=== PATIENT | female | born 1990 | race Caucasian/White ===

== ENCOUNTER 2018-02-13 20:32 | Emergency (ER) | payer OTHER ==
[~2018-02-13] VITALS: Ht 167.6 cm; Wt 72.0 kg
[2018-02-13] MEDS ORDERED: NO HOME MEDS (20:46)
[2018-02-13 22:52] VITALS: BP 112/72
[2018-02-13] MEDS: emtricitabine/tenofovir 200mg/300mg tablet PO SCH (23:20)
[2018-02-13] MEDS ORDERED: EMTR1TAB12 PO (23:41)
[2018-02-13] MEDS ORDERED: RALT400T PO (23:41)
== END 2018-02-13 23:55 | disposition home or self-care (01) ==
LOC: ER 20:33
DX: S61.032A Puncture wound without foreign body of left thumb without damage to nail, initial encounter (principal); Z88.8 Allergy status to other drugs, medicaments and biological substances; Z79.899 Other long term (current) drug therapy; W46.0XXA Contact with hypodermic needle, initial encounter; Y93.89 Activity, other specified; Y92.89 Other specified places as the place of occurrence of the external cause; Y99.8 Other external cause status
CPT/HCPCS: 99283

== ENCOUNTER 2019-12-02 14:32 | Emergency (ER) | payer OTHER ==
[~2019-12-02] VITALS: Ht 170.2 cm; Wt 69.5 kg
[~2019-12-02 14:32] MED LIST: EMTR1TAB12 PO; NO HOME MEDS; RALT400T PO
[2019-12-02 14:46] VITALS: BP 130/76
[2019-12-02] MEDS ORDERED: HYDR-4383 PO (15:49)
== END 2019-12-02 16:19 | disposition home or self-care (01) ==
LOC: ER 14:32
DX: S82.852A Displaced trimalleolar fracture of left lower leg, initial encounter for closed fracture (principal); Z88.8 Allergy status to other drugs, medicaments and biological substances; Z79.899 Other long term (current) drug therapy; W01.0XXA Fall on same level from slipping, tripping and stumbling without subsequent striking against object, initial encounter; Y93.01 Activity, walking, marching and hiking; Y92.89 Other specified places as the place of occurrence of the external cause; Y99.9 Unspecified external cause status
CPT/HCPCS: 29515; 73610; 99283

== ENCOUNTER 2019-12-18 05:27 | Day surgery (SDC) | payer OTHER ==
[2019-12-16 14:45] LABS: BASOPHILS # (AUTO) 0.1 X10'3 (0-0.2); BASOPHILS % (AUTO) 0.9 % (0-1); EOSINOPHILS # (AUTO) 0.1 X10'3 (0-0.9); EOSINOPHILS % (AUTO) 1.5 % (0-6); LYMPHOCYTES # (AUTO) 1.2 X10'3 (1.1-4.8); LYMPHOCYTES % (AUTO) 15.9 % (21-51); MEAN CORPUSCULAR HEMOGLOBIN 30.7 PG (27.0-31.0); MEAN CORPUSCULAR HGB CONC 34.1 g/dL (33.0-36.5); MEAN CORPUSCULAR VOLUME 90.1 FL (78-98); MEAN PLATELET VOLUME 6.5 FL (7.4-10.4); MONOCYTES # (AUTO) 0.5 X10'3 (0-0.9); NEUTROPHILS # (AUTO) 5.6 X10'3 (1.8-7.7); NEUTROPHILS % (AUTO) 74.7 % (42-75); PRE OP HEMATOCRIT 35.1 % (35.0-45.0); PRE OP PLATELET COUNT 463 X10'3 (140-440); RED BLOOD COUNT 3.89 X10'6 (4.20-5.60); RED CELL DISTRIBUTION WIDTH 13.2 % (11.5-14.5)
[2019-12-16 15:00] LABS: ALBUMIN 3.9 G/DL (3.4-5.0); ALKALINE PHOSPHATASE 54 IU/L (46-116); BLOOD UREA NITROGEN 13 MG/DL (7-18); BUN/CREATININE RATIO 17.3 (6.6-38.0); CALCIUM 9.4 MG/DL (8.5-10.1); CHLORIDE 107 MMOL/L (99-107); CREATININE 0.75 MG/DL (0.40-0.90); PRE OP ALT 23 U/L (30-65); PRE OP ANION GAP 5 (8-16); PRE OP AST 13 U/L (10-37); PRE OP BILIRUB, TOTAL 1.1 MG/DL (0.0-1.0); PRE OP GLUCOSE 90 MG/DL (70-104); PRE OP POTASSIUM 4.2 MMOL/L (3.4-5.1); PRE OP SODIUM 143 MMOL/L (135-145); TOTAL CARBON DIOXIDE 30.6 MMOL/L (24-32); TOTAL PROTEIN 7.8 G/DL (6.4-8.2); eGFR 90 ML/MIN
[2019-12-18] VITALS (17 sets, daily range): BP systolic 111–131; BP diastolic 55–85
[~2019-12-18] VITALS: Ht 170.2 cm; Wt 67.9 kg
[~2019-12-18 05:27] MED LIST changes: +ASPI-1265 PO; -EMTR1TAB12 PO; +HYDR-4383 PO; +IBUP-2417 PO; +MV-M1CAP15; -NO HOME MEDS; -RALT400T PO; +THIA50TA10; +ringers solution, lacted 1,000 ML IV SCH
[2019-12-18] MEDS ORDERED: famotidine 10mg tablet PO ONE (05:30)
[2019-12-18] MEDS ORDERED: cefazolin/dext.iso 2gm/100ml 100 ML IV ONE (06:05)
[2019-12-18] MEDS ORDERED: DOCU-148 PO (06:17)
[2019-12-18] MEDS ORDERED: MOME45CR3 TOP (06:26)
[2019-12-18] MEDS ORDERED: fentaNYL/PF 50MCG/1 ML 2ML syringe ONE ×2 (07:11→09:22)
[2019-12-18] MEDS ORDERED: MIDAZolam 5mg/5ml vial ONE (07:11)
[2019-12-18] MEDS ORDERED: LIDOcaine 2% (20mg/ml) 5ml vial ONE (07:13)
[2019-12-18] MEDS ORDERED: propofol inj 20 ML IV ONE (07:13)
[2019-12-18] MEDS ORDERED: sevoflurane 250ml liquid IH ONE (07:14)
[2019-12-18] MEDS ORDERED: ROPIVAcaine 0.5% (5mg/ml) 30ml vial ONE ×2 (07:15)
[2019-12-18] MEDS ORDERED: cloNIDine hcl/PF 100mcg/ml inj ONE (07:16)
[2019-12-18] MEDS ORDERED: ondansetron/PF 4mg/2ml inj ONE (07:42)
[2019-12-18] MEDS ORDERED: dexamethasone sod phosphate 4mg/ml inj. ONE (07:42)
[2019-12-18] MEDS ORDERED: ringers solution, lacted 1,000 ML IV SCH (08:07)
[2019-12-18] MEDS ORDERED: ondansetron/PF 4mg/2ml inj IV PRN (08:10)
[2019-12-18] MEDS ORDERED: fentaNYL/PF 50MCG/1 ML 2ML syringe IV PRN ×2 (08:10)
[2019-12-18] MEDS ORDERED: morphine 4 MG/ML inj SYRINge IV PRN ×2 (08:10)
[2019-12-18] MEDS ORDERED: labetalol 20mg/4ml (5mg/ml) syringe IV PRN (08:10)
[2019-12-18] MEDS ORDERED: hydrALAZINE 20mg/ml inj. IV PRN (08:10)
[2019-12-18] MEDS ORDERED: ketorolac trometh. 30mg/ml inj. ONE (09:07)
[2019-12-18] MEDS ORDERED: vancomycin 1,000mg inj ONE (09:14)
--- NOTE | 2019-12-18 10:04 | NUR ---
Received from OR via [facility], accompanied by Anesthesiologist DR GIL and report given by Anesthesiologist. 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 Addendum: 12/18/19 at 1026 by Marci Fox RN Amended: Links added.
[2019-12-18] MEDS ORDERED: HYDROcodone/acetaminophen 5mg/325mg tablet PO ONE (11:15)
--- NOTE | 2019-12-18 13:14 | NUR ---
D/C INSTRUCTIONS GIVEN AND GONE OVER W/PT AND PTS FAMILY WHOM VERBALIZE UNDERSTANDING, PT D/CD TO HOME VIA W/C TO PRIVATE VEHICLE W/O INCIDENT. Addendum: 12/18/19 at 1332 by Marci Fox RN Amended: Links added.
== END 2019-12-18 13:14 | disposition home or self-care (01) ==
LOC: PAS 05:27
PROVIDERS: ATTEND Orthopaedic Surgery Orthopaedic Trauma
DX: S82.872A Displaced pilon fracture of left tibia, initial encounter for closed fracture (principal); S82.852A Displaced trimalleolar fracture of left lower leg, initial encounter for closed fracture; X58.XXXA Exposure to other specified factors, initial encounter; Y93.89 Activity, other specified; Y92.89 Other specified places as the place of occurrence of the external cause; Y99.8 Other external cause status; M25.572 Pain in left ankle and joints of left foot
CPT/HCPCS: 27828; 36415; 73600; 76000; 80053; 82948; 85025; A6222; C1713; J0735; J1100; J1885; J2001; J2250; J2270; J2405; J2704; J3010; J3370; J7120; A4618; A6449; A7000; J2795